=== PATIENT | female | born 1990 | race Caucasian/White ===

== ENCOUNTER 2017-04-11 20:25 | Emergency (ER) | payer OTHER ==
[~2017-04-11] VITALS: Ht 165.1 cm; Wt 65.3 kg
[2017-04-11 21:31] LABS: EOSINOPHIL (%) 0.6 % (0-5); EOSINOPHIL COUNT 0.1 K/uL (0-0.3); HEMATOCRIT 39.5 % (36.0-46.0); IMMATURE GRANULOCYTE (%) 0.2 % (0.0-0.7); INSTRUMENT ABS NEUTROPHIL CT 4.5 K/uL; LYMPHOCYTE COUNT 3.4 K/uL (1.0-2.8); MCH 32.2 PG (29.0-34.0); MCHC 34.2 G/DL (30.0-36.0); MCV 94.3 FL (83-99); MONOCYTE (%) 5.5 % (3-12); MONOCYTE COUNT 0.5 K/uL (0-0.8); NEUTROPHIL (%) 53.1 % (45-76); NEUTROPHIL COUNT 4.5 K/uL (1.8-6.4); PLATELET COUNT 230 K/uL (156-360); RBC DIS.WIDTH-SD 37.8 % (39-53); RED BLOOD COUNT 4.19 M/uL (3.80-5.20); WHITE BLOOD COUNT 8.4 K/uL (4.1-10.2)
[2017-04-11 21:47] LABS: ANION GAP 7 MEQ/L (2-14); CHLORIDE 102 MEQ/L (99-109); DIRECT BILIRUBIN 0.1 mg/dL (0.0-0.3); POTASSIUM 4.2 MEQ/L (3.7-5.4); SAMPLE HEMOLYSIS CHECK 0; SAMPLE ICTERIC CHECK 0; SAMPLE LIPEMIA CHECK 0; SODIUM 137 MEQ/L (136-147); TOTAL BILIRUBIN 0.4 MG/DL (0.0-1.0)
[2017-04-11 21:52] LABS: ALKALINE PHOSPHATASE 42 IU/L (3-129); GFR ESTIMATE (CALCULATED) > 59 mL/min/; GLUCOSE 82 mg/dL (70-99); UREA NITROGEN (BUN) 11 mg/dL (9-23)
[2017-04-11 22:12] LABS: QUANTITATIVE HCG < 4.0 MIU/ML
[2017-04-11 22:25] VITALS: BP 128/83
== END 2017-04-11 22:37 | disposition home or self-care (01) ==
LOC: EME 20:25 → EXP 20:25
PROVIDERS: Physician Assistant
DX: Z77.21 Contact with and (suspected) exposure to potentially hazardous body fluids (principal); J45.909 Unspecified asthma, uncomplicated
CPT/HCPCS: 80048; 80076; 84702; 85025; 99281; 99283